=== PATIENT | male | born 1960 | race Caucasian/White ===

== ENCOUNTER 2024-09-13 06:48 | Day surgery (SDC) | payer BC, SELFPAY | END 2024-09-13 08:23 | disposition home or self-care (01) | LOC: GI 06:48 | PROVIDERS: ATTENDING PHYSICIAN Internal Medicine Gastroenterology | DX: Z12.11 Encounter for screening for malignant neoplasm of colon (principal); D12.2 Benign neoplasm of ascending colon; K57.30 Diverticulosis of large intestine without perforation or abscess without bleeding; K64.8 Other hemorrhoids; Z86.0100 Personal history of colon polyps, unspecified | CPT/HCPCS: 45380; 88305 ==